=== PATIENT | female | born 1970 | race Caucasian/White ===

== ENCOUNTER → 2016-09-08 | Outpatient (CLI) | payer OTHER ==
--- NOTE | 2016-09-10 10:04 | RADIOLOGY REPORT (SQ) ---
EXAM DESCRIPTION: MRI RT UPPER JOINT WITHOUT COMPLETED DATE/TIME: 09/08/2016 4:21 pm REASON FOR STUDY: RT SHOULDER PAIN COMPARISON: None. TECHNIQUE: Right shoulder images acquired and stored on PACS. Multiplanar imaging to include fat sen sitive sequences such as T1, water sensitive sequences such as FST2/STIR, cartilage sensitive sequenc es such as FSPD/gradient-echo sequences. LIMITATIONS: None. FINDINGS: BONE MARROW AND CORTEX: No worrisome bone lesions or marrow replacement. No occult fractur es. JOINT OR BURSAL EFFUSION: No glenohumeral joint effusion. There is a small amount of fluid in the styles bacromial/subdeltoid bursa GLENO-HUMERAL ARTICULATION: Normal articulation. No subluxation. No cystic change. No osteophytes or cartilage loss. ACROMION AND AC JOINT: Type 1 acromion with mild acromioclavicular joint hypertrophy, synovial thick ening, joint space fluid, bony spurring. There is mild narrowing of the subacromial recess. ROTATOR CUFF AND INTERVAL: Tiny full-thickness tear distal supraspinatus tendon best shown on sagitta l image image 10. Elsewhere, there is undersurface tendinopathy of supra and infraspinatus tendons. Subscapularis intact. No rotator interval tear. No rotator interval thickening to suggest adhesive capsulitis. LABRUM AND BICEPS LABRAL COMPLEX: Intra-articular long head biceps tendinopathy. There is superior labral tear extending into the anterior labrum on axial images 8-11. No paralabral cyst REMAINDER OF LABRUM AND IGHL : No gross tear or paralabral cyst formation. Labral evaluation is less than optimal without joint distention. No thickening of IGHL to suggest adhesive capsulitis. PERIARTICULAR AND ADJACENT SOFT TISSUES: No masses or abnormal nodes. OTHER: No other significant finding. IMPRESSION: Acromioclavicular joint hypertrophy Intra-articular long biceps tendon the roots supra air seen anteriorly. No paralabral cyst Tendinopathy supra and infraspinatus tendons, with a small anterior edge full-thickness supraspinatus tear TECHNICAL DOCUMENTATION: JOB ID: [id number] [employer]- All Rights Reserved
== END ==
LOC: EDBD 15:30 → RAD 15:30
PROVIDERS: ATTEND Family Medicine
DX: M25.511 Pain in right shoulder (principal)